=== PATIENT | female | born 1945 | race Caucasian/White ===

== ENCOUNTER → 2017-02-18 | Outpatient (CLI) | payer MEDICARE, OTHER ==
[2017-02-18 11:08] LABS: CREATININE 0.7 mg/dL (0.5-1.1)
== END | disposition disaster alternative care site (69) ==
LOC: GRAD 10:00 → GLAB 10:00 → GRAD 10:01
PROVIDERS: Surgery
DX: N63 Unspecified lump in breast (principal)
CPT/HCPCS: A9577; C8908